=== PATIENT | male | born 1980 | race Caucasian/White ===

== ENCOUNTER 2019-03-09 13:42 | Inpatient (IN) | payer OTHER ==
[2019-03-09 14:15] VITALS: BMI 26.1
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
--- NOTE | 2019-03-09 16:48 | PN ---
Teaching Attending Note Name of Resident: Sheeba Valenzuela ATTENDING PHYSICIAN STATEMENT I saw and evaluated the patient. I reviewed the resident's note and discussed the case with the resident. I agree with the resident's findings and plan as documented. SUBJECTIVE: 39 yo with h/o HTN, back pain, for heroin and benzo use disorders. Was in detox at [facility] last week, left 1 day, AMA. Heroin uses 5 bags- IV/inhalations, h/o methadone MAT but stopped a few years ago, h/o OD last week benzo 2 mg Klonopin- prescription cocaine use inh occ use OBJECTIVE: Vital Signs - 24 hr 03/09/19 03/09/19 14:02 14:36 Temperature 96.7 F L 96.7 F L Pulse Rate 65 65 Respiratory 16 16 Rate Blood Pressure 99/70 99/70 alert and oriented tremulous ASSESSMENT AND PLAN: pt to be admitted for heroin detox with methadone
[2019-03-09] MEDS ORDERED: cloNIDine HCL 0.1 MG TABLET PO PRN (17:22)
[2019-03-09] MEDS ORDERED: MAGNESIUM HYDROX 2400MG/30ML ORAL SUSPENSION 30 ML CUP PO PRN (17:23)
[2019-03-09] MEDS ORDERED: ACETAMINOPHEN 325 MG TABLET (FP) PO PRN ×2 (17:23)
[2019-03-09] MEDS ORDERED: MENTHOL/PHENOL 1 EACH UD MM PRN (17:23)
[2019-03-09] MEDS ORDERED: BISMUTH SUBSALICYLATE 524 MG/30 ML UD PO PRN (17:23)
[2019-03-09] MEDS ORDERED: METHOCARBAMOL 500 MG TABLET PO PRN (17:23)
[2019-03-09] MEDS ORDERED: hydrOXYzine PAMOATE 25 MG CAPSULE (FP) PO PRN (17:23)
[2019-03-09] MEDS ORDERED: MAG HYDROX/AL HYDROX/SIMETH 30 ML UNIT-DOSE CUP PO PRN (17:23)
[2019-03-09] MEDS ORDERED: METHADONE HCL 10 MG TABLET (FOR DETOX USE ONLY) PO ONE (18:00)
[2019-03-09] MEDS: diazePAM 5 MG TABLET PO PRN (18:05)
[2019-03-09] MEDS: NICOTINE 14 MG/24 HOURS TOPICAL PATCH TD SCH (18:10)
[2019-03-09] MEDS: diazePAM 5 MG TABLET PO SCH (22:15)
[2019-03-09] MEDS: THIAMINE HCL 100 MG TABLET (FP) PO SCH (22:15)
[2019-03-09] MEDS: MELATONIN 5 MG TABLETS PO PRN (22:15)
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
[2019-03-10] MEDS: diazePAM 5 MG TABLET PO PRN (09:06)
[2019-03-10] MEDS ORDERED: METHADONE HCL 5 MG TABLET (FOR DETOX USE ONLY) ONE (09:40)
[2019-03-10] MEDS ORDERED: METHADONE HCL 10 MG TABLET (FOR DETOX USE ONLY) ONE (09:41)
[2019-03-10] MEDS ORDERED: METHADONE (DETOX) 20 MG, METHADONE (DETOX) 5 MG PO ONE (10:00)
[2019-03-10] MEDS: NICOTINE 14 MG/24 HOURS TOPICAL PATCH TD SCH (10:13)
[2019-03-10] MEDS: diazePAM 5 MG TABLET PO SCH ×2 (10:13→22:05)
[2019-03-10] MEDS: PRENATAL VITAMINS W/ FOLIC ACID TABLET (FP) PO SCH (10:13)
[2019-03-10] MEDS: QUEtiapine FUMARATE 25 MG TABLET (FP) PO SCH ×2 (11:00→17:49)
[2019-03-10 11:22] LABS: ALBUMIN 3.3 g/dl (3.4-5.0); BILIRUBIN,TOTAL 0.5 mg/dL (0.2-1); BLOOD UREA NITROGEN 13.2 mg/dL (7-18); CALCIUM 8.7 mg/dL (8.5-10.1); CREATININE 0.8 mg/dL (0.55-1.3); POTASSIUM 4.5 mmol/L (3.5-5.1); TOT PROT 6.6 g/dl (6.4-8.2)
[2019-03-10 11:52] LABS: HEMATOCRIT 39.2 % (35.4-49); HEMOGLOBIN 13.3 GM/dL (11.7-16.9); MEAN CELL VOLUME 88.1 fl (80-96); MEAN PLT VOLUME 8.2 fl (7.5-11.1); PLATELET COUNT 183 K/MM3 (134-434); RBC 4.45 M/mm3 (4.00-5.60); RDW 13.8 % (11.9-15.9); WHITE BLOOD COUNT 6.3 K/mm3 (4.0-10.0)
[2019-03-10] MEDS: hydrOXYzine PAMOATE 50 MG CAPSULE (FP) PO PRN (12:21)
[2019-03-10] MEDS: cloNIDine HCL 0.1 MG TABLET PO PRN (12:21)
[2019-03-10] MEDS: LIDOCAINE 5% TOPICAL PATCH TP SCH (12:22)
[2019-03-10] MEDS: GABAPENTIN 400 MG CAPSULE (FP) PO SCH ×2 (15:00→22:05)
--- NOTE | 2019-03-10 15:33 | PN ---
[facility] CIWA - CIWA Score Nausea/Vomitin-No Nausea/No Vomiting Muscle Tremors: 3 Anxiety: 2 Agitation: 2 Paroxysmal Sweats: 3 Orientation: 0-Oriented Tacttile Disturbances: 2-Mild Itch/Numbness/Burn Auditory Disturbances: 0-None Visual Disturbances: 2-Mild Sensitivity Headache: 0-None Present CIWA-Ar Total Score: 14 BHS COWS - Scale Resting Pulse: 0= [place] 80 or Below Sweatin= Chills/Flushing Restless Observation: 1= Difficult to Sit Still Pupil Size: 0= Normal to Room Light Bone or Joint Aches: 2= Severe Diffuse Aches Runny Nose/ Eye Tearin= None GI Upset > 30mins: 1= Stomach Cramp (Constipation.) Tremor Observation of Outstretched Hands: 2= Slight Tremor Visible Yawning Observation: 1= 1-2x During Session Anxiety or Irritability: 2=Irritable/Anxious Goose Flesh Skin: 3=Piloerection COWS Score: 13 S Progress Note (SOAP) Subjective: Hot / Cold Sensations, Chills, Sweating, Tremors, Body Aches, Constipation. Objective: PATIENT A & O X 3, OBSERVED AMBULATING ON UNIT UNASSISTED. IN NO ACUTE DISTRESS. 03/10/19 15:31 Vital Signs Temperature 97.0 F L 03/10/19 13:29 Pulse Rate 54 L 03/10/19 13:29 Respiratory Rate 18 03/10/19 13:29 Blood Pressure 122/75 03/10/19 13:29 O2 Sat by Pulse Oximetry (%) Laboratory Tests 03/10/19 03/10/19 03/10/19 07:00 07:00 07:00 WBC 6.3 RBC 4.45 Hgb 13.3 Hct 39.2 MCV 88.1 MCH 30.0 MCHC 34.0 RDW 13.8 Plt Count 183 MPV 8.2 Sodium 140 Potassium 4.5 Chloride 104 Carbon Dioxide 29 Anion Gap 7 L BUN 13.2 Creatinine 0.8 Est GFR (CKD-EPI)AfAm 130.42 Est GFR (CKD-EPI)NonAf 112.53 Random Glucose 86 Calcium 8.7 Total Bilirubin 0.5 AST 10 L ALT 15 Alkaline Phosphatase 78 Total Protein 6.6 Albumin 3.3 L RPR Titer Nonreactive LABS NOTED. RESULTS OF DETOX ADMISSION QFT /TB TEST PENDING. 03/10/19 15:32 Assessment: 03/10/19 15:32 WITHDRAWAL SYMPTOMS. Plan: CONTINUE DETOX.
[2019-03-10] MEDS: THIAMINE HCL 100 MG TABLET (FP) PO SCH (22:05)
[2019-03-10] MEDS: MELATONIN 5 MG TABLETS PO PRN (22:05)
[2019-03-10] MEDS: QUEtiapine FUMARATE 400 MG TABLET PO SCH (22:05)
[2019-03-10] MEDS: LIDOCAINE PATCH REMOVAL MC SCH (22:07)
[2019-03-11] MEDS: GABAPENTIN 400 MG CAPSULE (FP) PO SCH ×3 (05:10→22:09)
[2019-03-11] MEDS: diazePAM 5 MG TABLET PO SCH ×3 (05:10→17:24)
[2019-03-11] MEDS: cloNIDine HCL 0.1 MG TABLET PO PRN ×4 (05:16→22:08)
[2019-03-11] MEDS ORDERED: METHADONE HCL 10 MG TABLET (FOR DETOX USE ONLY) PO ONE (10:00)
[2019-03-11] MEDS: PRENATAL VITAMINS W/ FOLIC ACID TABLET (FP) PO SCH (10:01)
[2019-03-11] MEDS: QUEtiapine FUMARATE 25 MG TABLET (FP) PO SCH ×2 (10:01→17:23)
[2019-03-11] MEDS: CYCLOBENZAPRINE HCL 10 MG TABLET (FP) PO PRN (10:04)
[2019-03-11] MEDS: LIDOCAINE 5% TOPICAL PATCH TP SCH (10:05)
[2019-03-11] MEDS: NICOTINE 14 MG/24 HOURS TOPICAL PATCH TD SCH (10:05)
[2019-03-11] MEDS: IBUPROFEN 400 MG TABLET (FP) PO PRN (14:57)
--- NOTE | 2019-03-11 15:06 | PN ---
[facility] CIWA - CIWA Score Nausea/Vomitin-No Nausea/No Vomiting Muscle Tremors: 3 Anxiety: 2 Agitation: 0-Normal Activity Paroxysmal Sweats: 3 Orientation: 0-Oriented Tacttile Disturbances: 2-Mild Itch/Numbness/Burn Auditory Disturbances: 0-None Visual Disturbances: 2-Mild Sensitivity Headache: 0-None Present CIWA-Ar Total Score: 12 S COWS - Scale Resting Pulse: 1= [place] 81-100 Sweatin= Chills/Flushing Restless Observation: 0= Sits Still Pupil Size: 0= Normal to Room Light Bone or Joint Aches: 2= Severe Diffuse Aches Runny Nose/ Eye Tearin= None GI Upset > 30mins: 0= None Tremor Observation of Outstretched Hands: 2= Slight Tremor Visible Yawning Observation: 1= 1-2x During Session Anxiety or Irritability: 2=Irritable/Anxious Goose Flesh Skin: 3=Piloerection COWS Score: 12 S Progress Note (SOAP) Subjective: Tremors, Sweating, Hot / Cold Sensations, Body Aches. Objective: PATIENT A & O X 3, OBSERVED AMBULATING ON UNIT UNASSISTED. IN NO ACUTE DISTRESS. 03/11/19 15:03 Vital Signs Temperature 97.9 F 03/11/19 13:27 Pulse Rate 87 03/11/19 13:27 Respiratory Rate 18 03/11/19 13:27 Blood Pressure 109/71 03/11/19 13:27 O2 Sat by Pulse Oximetry (%) Laboratory Tests 03/10/19 03/10/19 03/10/19 07:00 07:00 07:00 WBC 6.3 RBC 4.45 Hgb 13.3 Hct 39.2 MCV 88.1 MCH 30.0 MCHC 34.0 RDW 13.8 Plt Count 183 MPV 8.2 Sodium 140 Potassium 4.5 Chloride 104 Carbon Dioxide 29 Anion Gap 7 L BUN 13.2 Creatinine 0.8 Est GFR (CKD-EPI)AfAm 130.42 Est GFR (CKD-EPI)NonAf 112.53 Random Glucose 86 Calcium 8.7 Total Bilirubin 0.5 AST 10 L ALT 15 Alkaline Phosphatase 78 Total Protein 6.6 Albumin 3.3 L RPR Titer Nonreactive LABS NOTED. RESULTS OF DETOX ADMISSION QFT /TB TEST PENDING. 03/11/19 15:06 Assessment: 03/11/19 15:03 WITHDRAWAL SYMPTOMS. Plan: CONTINUE DETOX.
[2019-03-11] MEDS: hydrOXYzine PAMOATE 50 MG CAPSULE (FP) PO PRN (17:23)
[2019-03-11] MEDS: LIDOCAINE PATCH REMOVAL MC SCH (22:07)
[2019-03-11] MEDS: FLUTICASONE PROP 0.05% 16 GM NASAL SPRAY NS SCH (22:07)
[2019-03-11] MEDS: THIAMINE HCL 100 MG TABLET (FP) PO SCH (22:08)
[2019-03-11] MEDS: diazePAM 5 MG TABLET PO PRN (22:08)
[2019-03-11] MEDS: QUEtiapine FUMARATE 400 MG TABLET PO SCH (22:09)
[2019-03-12] MEDS ORDERED: diazePAM 5 MG TABLET PO ONE (06:00)
[2019-03-12] MEDS: GABAPENTIN 400 MG CAPSULE (FP) PO SCH ×3 (06:36→22:20)
[2019-03-12] MEDS ORDERED: METHADONE HCL 10 MG TABLET (FOR DETOX USE ONLY) ONE (08:53)
[2019-03-12] MEDS ORDERED: METHADONE HCL 5 MG TABLET (FOR DETOX USE ONLY) ONE (08:53)
--- NOTE | 2019-03-12 08:58 | PN ---
BHS COWS - Scale Resting Pulse: 1= SD 81-100 Sweatin= Chills/Flushing Restless Observation: 1= Difficult to Sit Still Pupil Size: 0= Normal to Room Light Bone or Joint Aches: 1= Mild Discomfort Runny Nose/ Eye Tearin= None GI Upset > 30mins: 1= Stomach Cramp Tremor Observation of Outstretched Hands: 2= Slight Tremor Visible Yawning Observation: 1= 1-2x During Session Anxiety or Irritability: 1=Feels Anxious/Irritable Goose Flesh Skin: 0=Smooth Skin COWS Score: 9 BHS Progress Note (SOAP) Subjective: Patient seen in bed and feeling still some subjective withdrawal symptoms. Objective: 03/12/19 08:57 Laboratory 03/10/19 03/10/19 03/10/19 07:00 07:00 07:00 WBC 6.3 K/mm3 K/mm3 (4.0-10.0) RBC 4.45 M/mm3 M/mm3 (4.00-5.60) Hgb 13.3 GM/dL GM/dL (11.7-16.9) Hct 39.2 % % (35.4-49) MCV 88.1 fl fl (80-96) MCH 30.0 pg pg (25.7-33.7) MCHC 34.0 g/dl g/dl (32.0-35.9) RDW 13.8 % % (11.9-15.9) Plt Count 183 K/MM3 K/MM3 (134-434) MPV 8.2 fl fl (7.5-11.1) Sodium 140 mmol/L mmol/L (136-145) Potassium 4.5 mmol/L mmol/L (3.5-5.1) Chloride 104 mmol/L mmol/L (98-107) Carbon Dioxide 29 mmol/L mmol/L (21-32) Anion Gap 7 MMOL/L L MMOL/L (8-16) BUN 13.2 mg/dL mg/dL (7-18) Creatinine 0.8 mg/dL mg/dL (0.55-1.3) Est GFR (CKD-EPI)AfAm 130.42 Est GFR (CKD-EPI)NonAf 112.53 Random Glucose 86 mg/dL mg/dL (74-106) Calcium 8.7 mg/dL mg/dL (8.5-10.1) Total Bilirubin 0.5 mg/dL mg/dL (0.2-1) AST 10 U/L L U/L (15-37) ALT 15 U/L U/L (13-61) Alkaline Phosphatase 78 U/L U/L (45-117) Total Protein 6.6 g/dl g/dl (6.4-8.2) Albumin 3.3 g/dl L g/dl (3.4-5.0) RPR Titer Nonreactive (NONREACTIVE) 03/12/19 08:58 Bp: 107/55 P:100/min R: 18/min T: 96.6 F Assessment: 03/12/19 09:00 Assessment: Patient is still in withdrawals Plan: Plan: Opioid Dependence with uncomplicated withdrawals Continue detox protocol. He wishes to follow up with rehab to discuss this with counselor. Dr. Fitzpatrick
[2019-03-12] MEDS: NICOTINE 14 MG/24 HOURS TOPICAL PATCH TD SCH (09:35)
[2019-03-12] MEDS: LIDOCAINE 5% TOPICAL PATCH TP SCH (09:35)
[2019-03-12] MEDS: PRENATAL VITAMINS W/ FOLIC ACID TABLET (FP) PO SCH (09:35)
[2019-03-12] MEDS: FLUTICASONE PROP 0.05% 16 GM NASAL SPRAY NS SCH (09:35)
[2019-03-12] MEDS: QUEtiapine FUMARATE 25 MG TABLET (FP) PO SCH ×2 (09:35→16:29)
[2019-03-12] MEDS ORDERED: METHADONE (DETOX) 10 MG, METHADONE (DETOX) 5 MG PO ONE (10:00)
[2019-03-12] MEDS: cloNIDine HCL 0.1 MG TABLET PO PRN ×2 (12:35→22:22)
[2019-03-12] MEDS: diazePAM 5 MG TABLET PO PRN (14:36)
[2019-03-12] MEDS: IBUPROFEN 400 MG TABLET (FP) PO PRN (16:29)
[2019-03-12] MEDS: THIAMINE HCL 100 MG TABLET (FP) PO SCH (22:20)
[2019-03-12] MEDS: QUEtiapine FUMARATE 400 MG TABLET PO SCH (22:20)
[2019-03-12] MEDS: LIDOCAINE PATCH REMOVAL MC SCH (23:17)
[2019-03-13] MEDS: GABAPENTIN 400 MG CAPSULE (FP) PO SCH ×3 (05:33→22:20)
[2019-03-13] MEDS: cloNIDine HCL 0.1 MG TABLET PO PRN (05:36)
[2019-03-13] MEDS ORDERED: METHADONE HCL 10 MG TABLET (FOR DETOX USE ONLY) PO ONE (10:00)
[2019-03-13] MEDS: PRENATAL VITAMINS W/ FOLIC ACID TABLET (FP) PO SCH (10:19)
[2019-03-13] MEDS: QUEtiapine FUMARATE 25 MG TABLET (FP) PO SCH ×2 (10:19→17:28)
[2019-03-13] MEDS: FLUTICASONE PROP 0.05% 16 GM NASAL SPRAY NS SCH (10:20)
[2019-03-13] MEDS: LIDOCAINE 5% TOPICAL PATCH TP SCH (10:20)
[2019-03-13] MEDS: NICOTINE 14 MG/24 HOURS TOPICAL PATCH TD SCH (10:21)
--- NOTE | 2019-03-13 11:35 | PN ---
BHS COWS - Scale Resting Pulse: 1= [place] 81-100 Sweatin= Chills/Flushing Restless Observation: 1= Difficult to Sit Still Pupil Size: 0= Normal to Room Light Bone or Joint Aches: 1= Mild Discomfort Runny Nose/ Eye Tearin= Nasal Congestion GI Upset > 30mins: 0= None Tremor Observation of Outstretched Hands: 0= None Yawning Observation: 1= 1-2x During Session Anxiety or Irritability: 1=Feels Anxious/Irritable Goose Flesh Skin: 0=Smooth Skin COWS Score: 7 BHS Progress Note (SOAP) Subjective: sweats anxiety Objective: 03/13/19 11:33 Vital Signs Temperature 95.7 F L 03/13/19 09:19 Pulse Rate 84 03/13/19 09:19 Respiratory Rate 17 03/13/19 09:19 Blood Pressure 111/64 03/13/19 09:19 O2 Sat by Pulse Oximetry (%) Laboratory Tests 03/10/19 03/10/19 03/10/19 07:00 07:00 07:00 WBC 6.3 RBC 4.45 Hgb 13.3 Hct 39.2 MCV 88.1 MCH 30.0 MCHC 34.0 RDW 13.8 Plt Count 183 MPV 8.2 Sodium 140 Potassium 4.5 Chloride 104 Carbon Dioxide 29 Anion Gap 7 L BUN 13.2 Creatinine 0.8 Est GFR (CKD-EPI)AfAm 130.42 Est GFR (CKD-EPI)NonAf 112.53 Random Glucose 86 Calcium 8.7 Total Bilirubin 0.5 AST 10 L ALT 15 Alkaline Phosphatase 78 Total Protein 6.6 Albumin 3.3 L RPR Titer TB (QFT) Incubation TB Test (QFT) Nil 0.23 TB Test (QFT) Mitogen >10.00 TB Test (QFT) Antigen 1.40 TB Test (QFT) Positive H TB Positive Criteria 03/10/19 07:00 WBC RBC Hgb Hct MCV MCH MCHC RDW Plt Count MPV Sodium Potassium Chloride Carbon Dioxide Anion Gap BUN Creatinine Est GFR (CKD-EPI)AfAm Est GFR (CKD-EPI)NonAf Random Glucose Calcium Total Bilirubin AST ALT Alkaline Phosphatase Total Protein Albumin RPR Titer Nonreactive TB (QFT) Incubation TB Test (QFT) Nil TB Test (QFT) Mitogen TB Test (QFT) Antigen TB Test (QFT) TB Positive Criteria lab result show a +TB QFT chest x-ray ordered but cryptographic technician arrives on friday, fri, friday only therefore pt will remain until friday and he can then go for chest x-ray for confirmation of the lab result [id number] ambulating no acute distress Assessment: 03/13/19 11:34 mild withdrawal sx Plan: continue detox increase fluids chest ray ordered for Friday therefore pt will remain until Friday and then be discharged after the chest ray and results are in.
[2019-03-13] MEDS: hydrOXYzine PAMOATE 50 MG CAPSULE (FP) PO PRN ×2 (13:24→17:28)
[2019-03-13] MEDS: CYCLOBENZAPRINE HCL 10 MG TABLET (FP) PO PRN ×2 (13:28→22:20)
[2019-03-13] MEDS ORDERED: diazePAM 5 MG TABLET PO ONE (21:18)
[2019-03-13] MEDS: LIDOCAINE PATCH REMOVAL MC SCH (22:19)
[2019-03-13] MEDS: QUEtiapine FUMARATE 400 MG TABLET PO SCH (22:20)
[2019-03-13] MEDS: THIAMINE HCL 100 MG TABLET (FP) PO SCH (22:20)
[2019-03-14] MEDS: GABAPENTIN 400 MG CAPSULE (FP) PO SCH (05:40)
[2019-03-14] MEDS ORDERED: METHADONE HCL 5 MG TABLET (FOR DETOX USE ONLY) PO ONE (06:00)
[2019-03-14 06:26] VITALS: BP 131/82; PULSE 86; TEMP 97.2
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
== END 2019-03-14 10:15 | disposition home or self-care (01) | DRG 773 ==
LOC: YASAS 13:42 → Y6N 17:28
PROVIDERS: ADMIT Surgery; ATTEND Surgery
PROC: HZ2ZZZZ Detoxification Services for Substance Abuse Treatment (ICD-10-PCS; principal; 2019-03-09)
DX: F11.23 Opioid dependence with withdrawal (principal); F13.230 Sedative, hypnotic or anxiolytic dependence with withdrawal, uncomplicated; F17.210 Nicotine dependence, cigarettes, uncomplicated; F41.9 Anxiety disorder, unspecified; F19.24 Other psychoactive substance dependence with psychoactive substance-induced mood disorder; F19.282 Other psychoactive substance dependence with psychoactive substance-induced sleep disorder; I10 Essential (primary) hypertension; M54.9 Dorsalgia, unspecified; G89.29 Other chronic pain; G25.0 Essential tremor; Z91.013 Allergy to seafood
CPT/HCPCS: 36415; 80053; 85027; 86480; 86593; J0735

== ENCOUNTER 2019-08-12 11:24 | Inpatient (IN) | payer OTHER ==
[2019-08-12 13:12] VITALS: BMI 27.2
--- NOTE | 2019-08-12 19:10 | HP ---
COWS - Scale Resting Pulse: 1= [place] 81-100 Sweatin= Beads of Sweat on Face Restless Observation: 3= Extraneous Movement Pupil Size: 0= Normal to Room Light Bone or Joint Aches: 4=Acute Joint/Muscle Pain Runny Nose/ Eye Tearin= None GI Upset > 30mins: 1= Stomach Cramp Tremor Observation: 2= Slight Tremor Visible Yawning Observation: 2= >3x During Session Anxiety or Irritability: 2=Irritable/Anxious Goose Flesh Skin: 0=Smooth Skin COWS Score: 18 CIWA Score - Admission Criteria OASAS Guidelines: Admission for Medically Managed Detox: Requires at least one of the followin. CIWA greater than 12 2. Seizures within the past 24 hours 3. Delirium tremens within the past 24 hours 4. Hallucinations within the past 24 hours 5. Acute intervention needed for co occurring medical disorder 6. Acute intervention needed for co occurring psychiatric disorder 7. Severe withdrawal that cannot be handled at a lower level of care (continued vomiting, continued diarrhea, abnormal vital signs) requiring intravenous medication and/or fluids 8. Admitting History and Physical - Admission Chief Complaint: "i'm here for heroin detox" History of Present Illness: A 39year old male with history of HTN, seizure, anxiety, depression, and heroin use disorder who presents here today for heroin detox. Last used heroin this morning via iv/inhalation. Pt states, he occasionally uses via IV into b/ l arms. No hx endocarditis, abscesses. Pt reports that he used to be in a methadone program but stopped because he didn't like the taste of methadone.Denies any depression or suicidal ideation at the moment. History Source: Patient Limitations to Obtaining History: No Limitations - Past Medical History Cardiovascular: Yes: HTN - Smoking History Smoking history: Current every day smoker Have you smoked in the past 12 months: Yes Aproximately how many cigarettes per day: 20 - Alcohol/Substance Use Hx Alcohol Use: No History of Substance Use: reports: Heroin - Social History Usual Living Arrangement: Yes: With Parent Do you think of yourself as: Straight/Heterosexual ADL: Independent History of Recent Travel: No Admission ROS S - HPI Allergies/Adverse Reactions: Allergies Allergy/AdvReac Type Severity Reaction Status Date / Time shellfish derived Allergy Intermediate Itching Verified 08/12/19 12:55 No Known Drug Allergies Allergy Verified 08/12/19 12:55 Exam Limitations: No Limitations - Ebola screening Have you traveled outside of the country in the last 21 days: No Have you had contact with anyone from an Ebola affected area: No Have you been sick,other than usual withdrawal symptoms: No Do you have a fever: No - Review of Systems Constitutional: Chills, Loss of Appetite, Night Sweats EENT: reports: Blurred Vision Respiratory: reports: No Symptoms reported Cardiac: reports: No Symptoms Reported GI: reports: Poor Appetite, Abdominal cramping : reports: No Symptoms Reported Musculoskeletal: reports: Back Pain, Joint Pain, Muscle Pain Integumentary: reports: Other (track locke on b/l vashti) Neuro: reports: Headache, Tremors Endocrine: reports: No Symptoms Reported Hematology: reports: No Symptoms Reported Psychiatric: reports: Judgement Intact, Mood/Affect Appropiate, other (h/o of depression.) Other Systems: Reviewed and Negative Patient History - Patient Medical History Hx Anemia: No Hx Asthma: No Hx Chronic Obstructive Pulmonary Disease (COPD): No Hx Cancer: No Hx Cardiac Disorders: No Hx Congestive Heart Failure: No Hx Hypertension: Yes Hx Hypercholesterolemia: No Hx Pacemaker: No HX Cerebrovascular Accident: No Hx Seizures: Yes (last 2 months ago) Hx Dementia: No Hx Diabetes: No Hx Gastrointestinal Disorders: No Hx Liver Disease: No Hx Genitourinary Disorders: No Hx Sexually Transmitted Disorders: No Hx Renal Disease (ESRD): No Hx Thyroid Disease: No Hx Human Immunodeficiency Virus (HIV): No (negative jun, 2019.) Hx Hepatitis C: No Hx Depression: Yes Hx Suicide Attempt: No Hx Bipolar Disorder: No Hx Schizophrenia: No - Patient Surgical History Past Surgical History: No Hx Neurologic Surgery: No Hx Cataract Extraction: No Hx Cardiac Surgery: No Hx Lung Surgery: No Hx Breast Surgery: No Hx Breast Biopsy: No Hx Abdominal Surgery: No Hx Appendectomy: No Hx Cholecystectomy: No Hx Genitourinary Surgery: No Hx Orthopedic Surgery: No - PPD History Previous Implant?: Yes (pt states he had one last month) Documented Results: Positive w/o proof Implanted On Prior [facility] Admission?: No PPD to be Administered?: No - Smoking Cessation Smoking history: Current every day smoker Have you smoked in the past 12 months: Yes Aproximately how many cigarettes per day: 20 Hx Chewing Tobacco Use: No Initiated information on smoking cessation: Yes 'Breaking Loose' booklet given: 08/12/19 - Substance & Tx. History Hx Alcohol Use: No Hx Substance Use: Yes Substance Use Type: Heroin Hx Substance Use Treatment: Yes (Pt states, he was on methadone tx for 15yrs and stopped last year 2018.) - Substances abused Heroin Substance route: Injection Frequency: Daily Amount used: 1 1/2 bundles Age of first use: 23 Date of last use: 08/12/19 (Pt states he injects/sniffs heroin) Benzodiazepine (Klonopin) Substance route: Oral Frequency: Daily Amount used: 2mg Age of first use: 21 Date of last use: 03/05/19 Admission Physical Exam [facility] - Vital Signs Vital Signs: Vital Signs - 24 hr 08/12/19 12:51 Temperature 97.2 F L Pulse Rate 91 H Respiratory 18 Rate Blood Pressure 120/75 - Physical General Appearance: Yes: No Apparent Distress, Tremorous, Irritable, Sweating, Anxious HEENTM: Yes: EOMI, Hearing grossly Normal, Normocephalic, Normal Voice, MICHAEL, Tm 's normal Respiratory: Yes: Chest Non-Tender, Lungs Clear, Normal Breath Sounds, No Respiratory Distress, No Accessory Muscle Use Neck: Yes: No masses,lesions,Nodules, Supple, Trachea in good position Breast: Yes: Within Normal Limits Cardiology: Yes: Regular Rhythm, Regular Rate, S1, S2 Abdominal: Yes: Normal Bowel Sounds, Non Tender, Soft Genitourinary: Yes: Within Normal Limits Back: Yes: Normal Inspection Musculoskeletal: Yes: full range of Motion Extremities: Yes: Normal Capillary Refill, Normal Inspection, Non-Tender, Tremors Neurological: Yes: Alert, Normal Mood/Affect, Normal Response Integumentary: Yes: Track Locke (track locke to /l arms.) - Diagnostic (1) History of positive PPD Current Visit: No Status: Acute (2) Opiate withdrawal Current Visit: No Status: Acute (3) Opioid dependence, uncomplicated Current Visit: No Status: Acute (4) Anxiety disorder Current Visit: No Status: Chronic (5) Back pain Current Visit: No Status: Chronic (6) Depression Current Visit: No Status: Chronic (7) Hypertension Current Visit: No Status: Chronic (8) Nicotine use disorder Current Visit: No Status: Chronic Cleared for Admission [facility] - Detox or Rehab [facility] Level of Care: Medically Managed Detox Regimen/Protocol: Methadone Claeared for Rehab Admission: No Breathalyzer - Breathalyzer Breathalyzer: 0 Urine Drug Screen - Test Device Lot number: [id number] Expiration date: 03/02/21 - Control Is test valid?: Yes - Results Drug screen NEGATIVE: No Urine drug screen results: FEN-Fentanyl, MOP-Opiates Inpatient Rehab Admission - Rehab Decision to Admit Inpatient rehab admission?: No
[2019-08-12] MEDS ORDERED: MAGNESIUM HYDROX 2400MG/30ML ORAL SUSPENSION 30 ML CUP PO PRN (19:29)
[2019-08-12] MEDS ORDERED: hydrOXYzine PAMOATE 25 MG CAPSULE (FP) PO PRN (19:29)
[2019-08-12] MEDS ORDERED: MENTHOL/PHENOL 1 EACH UD MM PRN (19:29)
[2019-08-12] MEDS ORDERED: IBUPROFEN 400 MG TABLET (FP) PO PRN (19:29)
[2019-08-12] MEDS ORDERED: BISMUTH SUBSALICYLATE 524 MG/30 ML UD PO PRN (19:29)
[2019-08-12] MEDS ORDERED: MAG HYDROX/AL HYDROX/SIMETH 30 ML UNIT-DOSE CUP PO PRN (19:29)
[2019-08-12] MEDS ORDERED: ACETAMINOPHEN 325 MG TABLET (FP) PO PRN ×2 (19:29)
[2019-08-12] MEDS ORDERED: MAGNESIUM CITRATE 300 ML BOTTLE PO PRN (19:29)
[2019-08-12] MEDS ORDERED: cloNIDine HCL 0.1 MG TABLET PO PRN ×2 (19:33→19:46)
[2019-08-12] MEDS ORDERED: METHADONE HCL 10 MG TABLET (FOR DETOX USE ONLY) PO ONE (19:45)
[2019-08-12] MEDS: THIAMINE HCL 100 MG TABLET (FP) PO SCH (22:28)
[2019-08-12] MEDS: levETIRAcetam 500 MG TABLET (FP) PO SCH (22:28)
[2019-08-12] MEDS: MELATONIN 5 MG TABLETS PO PRN (22:29)
[2019-08-12] MEDS: METHOCARBAMOL 500 MG TABLET PO PRN (22:29)
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
[2019-08-13] MEDS ORDERED: METHADONE HCL 5 MG TABLET (FOR DETOX USE ONLY) ONE (08:46)
[2019-08-13] MEDS ORDERED: METHADONE HCL 10 MG TABLET (FOR DETOX USE ONLY) ONE (08:46)
[2019-08-13] MEDS ORDERED: METHADONE (DETOX) 20 MG, METHADONE (DETOX) 5 MG PO ONE (10:00)
[2019-08-13] MEDS: PRENATAL VITAMINS W/ FOLIC ACID TABLET (FP) PO SCH (10:08)
[2019-08-13] MEDS: levETIRAcetam 500 MG TABLET (FP) PO SCH ×2 (10:08→21:52)
[2019-08-13] MEDS: ESCITALOPRAM OXALATE 20 MG TABLET (FP) PO SCH (10:09)
[2019-08-13] MEDS ORDERED: ESCITALOPRAM OXALATE 10 MG TABLET (FP) ONE (10:09)
[2019-08-13] MEDS: QUEtiapine FUMARATE 25 MG TABLET (FP) PO SCH (10:09)
[2019-08-13 10:48] LABS: HEMATOCRIT 43.2 % (35.4-49); HEMOGLOBIN 14.3 GM/dL (11.7-16.9); MCH 29.3 pg (25.7-33.7); MCHC 33.1 g/dl (32.0-35.9); MEAN CELL VOLUME 88.5 fl (80-96); MEAN PLT VOLUME 8.6 fl (7.5-11.1); PLATELET COUNT 232 K/MM3 (134-434); RBC 4.88 M/mm3 (4.00-5.60); RDW 13.1 % (11.9-15.9); WHITE BLOOD COUNT 7.7 K/mm3 (4.0-10.0)
[2019-08-13 10:58] LABS: ALBUMIN 3.3 g/dl (3.4-5.0); BILIRUBIN,TOTAL 0.6 mg/dL (0.2-1); BLOOD UREA NITROGEN 13.4 mg/dL (7-18); CALCIUM 8.8 mg/dL (8.5-10.1); CREATININE 0.6 mg/dL (0.55-1.3); POTASSIUM 4.2 mmol/L (3.5-5.1); TOT PROT 6.8 g/dl (6.4-8.2)
--- NOTE | 2019-08-13 11:04 | PN ---
BHS COWS - Scale Resting Pulse: 1= [place] 81-100 Sweatin= Chills/Flushing Restless Observation: 1= Difficult to Sit Still Pupil Size: 0= Normal to Room Light Bone or Joint Aches: 2= Severe Diffuse Aches GI Upset > 30mins: 1= Stomach Cramp Tremor Observation of Outstretched Hands: 2= Slight Tremor Visible Yawning Observation: 1= 1-2x During Session Anxiety or Irritability: 2=Irritable/Anxious Goose Flesh Skin: 0=Smooth Skin BHS Progress Note (SOAP) Subjective: pt admitted yesterday for for heroin detox. Says still feeling sick. O: Vital Signs - 24 hr 08/12/19 08/12/19 08/13/19 12:51 22:40 00:27 Temperature 97.2 F L 97.4 F L Pulse Rate 91 H 90 Respiratory 18 18 18 Rate Blood Pressure 120/75 110/72 08/13/19 08/13/19 08/13/19 03:30 05:52 09:13 Temperature 97 F L 97.6 F Pulse Rate 70 67 Respiratory 16 18 18 Rate Blood Pressure 105/60 119/80 Laboratory Tests 08/13/19 08/13/19 07:45 07:45 WBC 7.7 RBC 4.88 Hgb 14.3 Hct 43.2 MCV 88.5 MCH 29.3 MCHC 33.1 RDW 13.1 Plt Count 232 D MPV 8.6 Sodium 139 Potassium 4.2 Chloride 104 Carbon Dioxide 30 Anion Gap 5 L BUN 13.4 Creatinine 0.6 Est GFR (CKD-EPI)AfAm 145.76 Est GFR (CKD-EPI)NonAf 125.77 Random Glucose 84 Calcium 8.8 Total Bilirubin 0.6 AST 19 ALT 30 Alkaline Phosphatase 73 Total Protein 6.8 Albumin 3.3 L a/p: continue opioid detox: d/w pt prn meds in addition to detox with methadone and long term care administrator MAT- pt will consider this
[2019-08-13] MEDS ORDERED: clonazePAM 0.5 MG TABLET PO PRN (11:07)
--- NOTE | 2019-08-13 11:39 | EKG ---
Test Reason : Blood Pressure : / mmHG Vent. Rate : 089 BPM Atrial Rate : 089 BPM P-R Int : 140 ms QRS Dur : 090 ms QT Int : 372 ms P-R-T Axes : 033 026 043 degrees QTc Int : 452 ms NORMAL SINUS RHYTHM NORMAL ECG NO PREVIOUS ECGS AVAILABLE Confirmed by LYLE VALDES MD ([id number]) on 08/13/2019 11:39:22 AM Referred By: CORETTA RODRIGUEZ Confirmed By:LYLE VALDES MD
[2019-08-13] MEDS: hydrOXYzine PAMOATE 50 MG CAPSULE (FP) PO PRN ×3 (13:05→21:53)
[2019-08-13] MEDS: GABAPENTIN 400 MG CAPSULE (FP) PO SCH ×2 (14:36→21:51)
[2019-08-13] MEDS: clonazePAM 0.5 MG TABLET PO PRN (17:29)
[2019-08-13] MEDS: METHOCARBAMOL 500 MG TABLET PO PRN (17:29)
[2019-08-13] MEDS: cloNIDine HCL 0.1 MG TABLET PO PRN (21:52)
[2019-08-13] MEDS: QUEtiapine FUMARATE 400 MG TABLET PO SCH (21:52)
[2019-08-13] MEDS: THIAMINE HCL 100 MG TABLET (FP) PO SCH (21:52)
[2019-08-14] MEDS: GABAPENTIN 400 MG CAPSULE (FP) PO SCH ×3 (05:48→22:15)
[2019-08-14] MEDS: clonazePAM 0.5 MG TABLET PO PRN ×3 (05:50→20:08)
[2019-08-14] MEDS ORDERED: ESCITALOPRAM OXALATE 10 MG TABLET (FP) ONE (09:00)
[2019-08-14] MEDS ORDERED: METHADONE HCL 10 MG TABLET (FOR DETOX USE ONLY) PO ONE (10:00)
[2019-08-14] MEDS: PRENATAL VITAMINS W/ FOLIC ACID TABLET (FP) PO SCH (10:19)
[2019-08-14] MEDS: ESCITALOPRAM OXALATE 20 MG TABLET (FP) PO SCH (10:19)
[2019-08-14] MEDS: levETIRAcetam 500 MG TABLET (FP) PO SCH ×2 (10:19→22:15)
[2019-08-14] MEDS: QUEtiapine FUMARATE 25 MG TABLET (FP) PO SCH (10:19)
[2019-08-14] MEDS: METHOCARBAMOL 500 MG TABLET PO PRN ×2 (10:22→17:03)
--- NOTE | 2019-08-14 10:26 | PN ---
BHS COWS - Scale Resting Pulse: 0= [place] 80 or Below Sweatin= Beads of Sweat on Face Restless Observation: 1= Difficult to Sit Still Pupil Size: 0= Normal to Room Light Bone or Joint Aches: 2= Severe Diffuse Aches Runny Nose/ Eye Tearin= None GI Upset > 30mins: 0= None Tremor Observation of Outstretched Hands: 0= None Yawning Observation: 1= 1-2x During Session Anxiety or Irritability: 2=Irritable/Anxious Goose Flesh Skin: 0=Smooth Skin COWS Score: 9 S Progress Note (SOAP) Subjective: c/o sweats, muscle aches, headache, and anxiety. Objective: 08/14/19 10:25 Vital Signs 08/14/19 08/14/19 08/14/19 03:30 06:40 09:32 Temperature 97.0 F L 98.2 F Pulse Rate 72 80 Respiratory 18 18 18 Rate Blood Pressure 101/59 L 108/72 Laboratory Last Values WBC 7.7 K/mm3 (4.0-10.0) 08/13/19 07:45 RBC 4.88 M/mm3 (4.00-5.60) 08/13/19 07:45 Hgb 14.3 GM/dL (11.7-16.9) 08/13/19 07:45 Hct 43.2 % (35.4-49) 08/13/19 07:45 MCV 88.5 fl (80-96) 08/13/19 07:45 MCH 29.3 pg (25.7-33.7) 08/13/19 07:45 MCHC 33.1 g/dl (32.0-35.9) 08/13/19 07:45 RDW 13.1 % (11.9-15.9) 08/13/19 07:45 Plt Count 232 K/MM3 (134-434) D 08/13/19 07:45 MPV 8.6 fl (7.5-11.1) 08/13/19 07:45 Sodium 139 mmol/L (136-145) 08/13/19 07:45 Potassium 4.2 mmol/L (3.5-5.1) 08/13/19 07:45 Chloride 104 mmol/L (98-107) 08/13/19 07:45 Carbon Dioxide 30 mmol/L (21-32) 08/13/19 07:45 Anion Gap 5 MMOL/L (8-16) L 08/13/19 07:45 BUN 13.4 mg/dL (7-18) 08/13/19 07:45 Creatinine 0.6 mg/dL (0.55-1.3) 08/13/19 07:45 Est GFR (CKD-EPI)AfAm 145.76 08/13/19 07:45 Est GFR (CKD-EPI)NonAf 125.77 08/13/19 07:45 Random Glucose 84 mg/dL (74-106) 08/13/19 07:45 Calcium 8.8 mg/dL (8.5-10.1) 08/13/19 07:45 Total Bilirubin 0.6 mg/dL (0.2-1) 08/13/19 07:45 AST 19 U/L (15-37) 08/13/19 07:45 ALT 30 U/L (13-61) 08/13/19 07:45 Alkaline Phosphatase 73 U/L (45-117) 08/13/19 07:45 Total Protein 6.8 g/dl (6.4-8.2) 08/13/19 07:45 Albumin 3.3 g/dl (3.4-5.0) L 08/13/19 07:45 RPR Titer Nonreactive (NONREACTIVE) 08/13/19 07:45 Labs noted. Assessment: 08/14/19 10:26 AOX3, in no acute respiratory distress. Full ROM, ambulating in the unit. Withdrawal symptoms. Plan: continue detox.
[2019-08-14] MEDS ORDERED: NICOTINE POLACRILEX 2 MG GUM BUC PRN (14:14)
[2019-08-14] MEDS: NICOTINE 21 MG/24 HOURS TOPICAL PATCH TD SCH (15:09)
[2019-08-14] MEDS: hydrOXYzine PAMOATE 50 MG CAPSULE (FP) PO PRN (17:03)
[2019-08-14] MEDS: cloNIDine HCL 0.1 MG TABLET PO PRN (20:08)
[2019-08-14] MEDS: QUEtiapine FUMARATE 400 MG TABLET PO SCH (22:15)
[2019-08-14] MEDS: THIAMINE HCL 100 MG TABLET (FP) PO SCH (22:16)
[2019-08-15] MEDS: GABAPENTIN 400 MG CAPSULE (FP) PO SCH ×3 (05:33→22:26)
[2019-08-15] MEDS: clonazePAM 0.5 MG TABLET PO PRN ×2 (05:35→17:31)
[2019-08-15] MEDS ORDERED: METHADONE HCL 10 MG TABLET (FOR DETOX USE ONLY) ONE (08:44)
[2019-08-15] MEDS ORDERED: METHADONE HCL 5 MG TABLET (FOR DETOX USE ONLY) ONE (08:44)
[2019-08-15] MEDS ORDERED: ESCITALOPRAM OXALATE 10 MG TABLET (FP) ONE (08:45)
[2019-08-15] MEDS ORDERED: METHADONE (DETOX) 10 MG, METHADONE (DETOX) 5 MG PO ONE (10:00)
[2019-08-15] MEDS: QUEtiapine FUMARATE 25 MG TABLET (FP) PO SCH (10:18)
[2019-08-15] MEDS: levETIRAcetam 500 MG TABLET (FP) PO SCH ×2 (10:18→22:26)
[2019-08-15] MEDS: PRENATAL VITAMINS W/ FOLIC ACID TABLET (FP) PO SCH (10:18)
[2019-08-15] MEDS: ESCITALOPRAM OXALATE 20 MG TABLET (FP) PO SCH (10:19)
[2019-08-15] MEDS: NICOTINE 21 MG/24 HOURS TOPICAL PATCH TD SCH (10:20)
--- NOTE | 2019-08-15 10:33 | PN ---
BHS COWS - Scale Resting Pulse: 1= [place] 81-100 Sweatin= Chills/Flushing Restless Observation: 0= Sits Still Pupil Size: 1= Pupils >than Normal Bone or Joint Aches: 1= Mild Discomfort Runny Nose/ Eye Tearin= None GI Upset > 30mins: 1= Stomach Cramp Tremor Observation of Outstretched Hands: 1= Tremor [place], Not Seen Yawning Observation: 0= None Anxiety or Irritability: 1=Feels Anxious/Irritable Goose Flesh Skin: 0=Smooth Skin COWS Score: 7 BHS Progress Note (SOAP) Subjective: 39 years old male admitted on 08/12/19 for opiate withdrawal sx management treating with methadone detox regimen c/o chronic back pain lidocaine patch daily robaxine x 1 now Objective: 08/15/19 10:41 Vital Signs Temperature 95.9 F L 08/15/19 09:25 Pulse Rate 99 H 08/15/19 09:25 Respiratory Rate 20 08/15/19 09:25 Blood Pressure 116/71 08/15/19 09:25 O2 Sat by Pulse Oximetry (%) Laboratory Last Values WBC 7.7 K/mm3 (4.0-10.0) 08/13/19 07:45 RBC 4.88 M/mm3 (4.00-5.60) 08/13/19 07:45 Hgb 14.3 GM/dL (11.7-16.9) 08/13/19 07:45 Hct 43.2 % (35.4-49) 08/13/19 07:45 MCV 88.5 fl (80-96) 08/13/19 07:45 MCH 29.3 pg (25.7-33.7) 08/13/19 07:45 MCHC 33.1 g/dl (32.0-35.9) 08/13/19 07:45 RDW 13.1 % (11.9-15.9) 08/13/19 07:45 Plt Count 232 K/MM3 (134-434) D 08/13/19 07:45 MPV 8.6 fl (7.5-11.1) 08/13/19 07:45 Sodium 139 mmol/L (136-145) 08/13/19 07:45 Potassium 4.2 mmol/L (3.5-5.1) 08/13/19 07:45 Chloride 104 mmol/L (98-107) 08/13/19 07:45 Carbon Dioxide 30 mmol/L (21-32) 08/13/19 07:45 Anion Gap 5 MMOL/L (8-16) L 08/13/19 07:45 BUN 13.4 mg/dL (7-18) 08/13/19 07:45 Creatinine 0.6 mg/dL (0.55-1.3) 08/13/19 07:45 Est GFR (CKD-EPI)AfAm 145.76 08/13/19 07:45 Est GFR (CKD-EPI)NonAf 125.77 08/13/19 07:45 Random Glucose 84 mg/dL (74-106) 08/13/19 07:45 Calcium 8.8 mg/dL (8.5-10.1) 08/13/19 07:45 Total Bilirubin 0.6 mg/dL (0.2-1) 08/13/19 07:45 AST 19 U/L (15-37) 08/13/19 07:45 ALT 30 U/L (13-61) 08/13/19 07:45 Alkaline Phosphatase 73 U/L (45-117) 08/13/19 07:45 Total Protein 6.8 g/dl (6.4-8.2) 08/13/19 07:45 Albumin 3.3 g/dl (3.4-5.0) L 08/13/19 07:45 RPR Titer Nonreactive (NONREACTIVE) 08/13/19 07:45 lab noted Assessment: 08/15/19 10:41 opiate withdrawal Plan: methadone regimen picking up narcan upon discharge
[2019-08-15] MEDS ORDERED: METHOCARBAMOL 500 MG TABLET PO ONE (10:45)
[2019-08-15] MEDS: LIDOCAINE 5% TOPICAL PATCH TP SCH (12:05)
[2019-08-15] MEDS: cloNIDine HCL 0.1 MG TABLET PO PRN ×2 (17:31→22:27)
[2019-08-15] MEDS: hydrOXYzine PAMOATE 50 MG CAPSULE (FP) PO PRN ×2 (17:31→22:28)
[2019-08-15] MEDS: METHOCARBAMOL 500 MG TABLET PO PRN (17:31)
[2019-08-15] MEDS: QUEtiapine FUMARATE 400 MG TABLET PO SCH (22:26)
[2019-08-15] MEDS: LIDOCAINE PATCH REMOVAL MC SCH (22:26)
[2019-08-15] MEDS: THIAMINE HCL 100 MG TABLET (FP) PO SCH (22:26)
[2019-08-15] MEDS: MELATONIN 5 MG TABLETS PO PRN (22:27)
[2019-08-16] MEDS: GABAPENTIN 400 MG CAPSULE (FP) PO SCH ×3 (05:14→21:34)
[2019-08-16] MEDS: clonazePAM 0.5 MG TABLET PO PRN (05:16)
--- NOTE | 2019-08-16 09:55 | PN ---
BHS COWS - Scale Resting Pulse: 2= [place] 101-120 Sweatin= No chills or Flushing Restless Observation: 0= Sits Still Pupil Size: 0= Normal to Room Light Bone or Joint Aches: 1= Mild Discomfort Runny Nose/ Eye Tearin= None GI Upset > 30mins: 0= None Tremor Observation of Outstretched Hands: 0= None Yawning Observation: 0= None Anxiety or Irritability: 1=Feels Anxious/Irritable Goose Flesh Skin: 0=Smooth Skin COWS Score: 4 BHS Progress Note (SOAP) Subjective: 39 years old male admitted on 08/12/19 for opiate withdrawal sx management treating with methadone detox regimen requests suboxone prescription upon discharge health teaching on adverse reactions mixing methadone with suboxone encourage pick out hand narcan from pharmacy Objective: 08/16/19 09:54 Vital Signs Temperature 96.0 F L 08/16/19 09:16 Pulse Rate 102 H 08/16/19 09:16 Respiratory Rate 18 08/16/19 09:16 Blood Pressure 100/69 08/16/19 09:16 O2 Sat by Pulse Oximetry (%) Laboratory Last Values WBC 7.7 K/mm3 (4.0-10.0) 08/13/19 07:45 RBC 4.88 M/mm3 (4.00-5.60) 08/13/19 07:45 Hgb 14.3 GM/dL (11.7-16.9) 08/13/19 07:45 Hct 43.2 % (35.4-49) 08/13/19 07:45 MCV 88.5 fl (80-96) 08/13/19 07:45 MCH 29.3 pg (25.7-33.7) 08/13/19 07:45 MCHC 33.1 g/dl (32.0-35.9) 08/13/19 07:45 RDW 13.1 % (11.9-15.9) 08/13/19 07:45 Plt Count 232 K/MM3 (134-434) D 08/13/19 07:45 MPV 8.6 fl (7.5-11.1) 08/13/19 07:45 Sodium 139 mmol/L (136-145) 08/13/19 07:45 Potassium 4.2 mmol/L (3.5-5.1) 08/13/19 07:45 Chloride 104 mmol/L (98-107) 08/13/19 07:45 Carbon Dioxide 30 mmol/L (21-32) 08/13/19 07:45 Anion Gap 5 MMOL/L (8-16) L 08/13/19 07:45 BUN 13.4 mg/dL (7-18) 08/13/19 07:45 Creatinine 0.6 mg/dL (0.55-1.3) 08/13/19 07:45 Est GFR (CKD-EPI)AfAm 145.76 08/13/19 07:45 Est GFR (CKD-EPI)NonAf 125.77 08/13/19 07:45 Random Glucose 84 mg/dL (74-106) 08/13/19 07:45 Calcium 8.8 mg/dL (8.5-10.1) 08/13/19 07:45 Total Bilirubin 0.6 mg/dL (0.2-1) 08/13/19 07:45 AST 19 U/L (15-37) 08/13/19 07:45 ALT 30 U/L (13-61) 08/13/19 07:45 Alkaline Phosphatase 73 U/L (45-117) 08/13/19 07:45 Total Protein 6.8 g/dl (6.4-8.2) 08/13/19 07:45 Albumin 3.3 g/dl (3.4-5.0) L 08/13/19 07:45 RPR Titer Nonreactive (NONREACTIVE) 08/13/19 07:45 lab noted Assessment: 08/16/19 09:54 opiate withdrawal Plan: methadone regimen
[2019-08-16] MEDS ORDERED: METHADONE HCL 10 MG TABLET (FOR DETOX USE ONLY) PO ONE (10:00)
[2019-08-16] MEDS: levETIRAcetam 500 MG TABLET (FP) PO SCH ×2 (10:17→21:34)
[2019-08-16] MEDS: ESCITALOPRAM OXALATE 20 MG TABLET (FP) PO SCH (10:17)
[2019-08-16] MEDS: LIDOCAINE 5% TOPICAL PATCH TP SCH (10:17)
[2019-08-16] MEDS: QUEtiapine FUMARATE 25 MG TABLET (FP) PO SCH (10:17)
[2019-08-16] MEDS: PRENATAL VITAMINS W/ FOLIC ACID TABLET (FP) PO SCH (10:17)
[2019-08-16] MEDS: NICOTINE 21 MG/24 HOURS TOPICAL PATCH TD SCH (10:17)
[2019-08-16] MEDS: hydrOXYzine PAMOATE 50 MG CAPSULE (FP) PO PRN ×2 (13:28→19:05)
[2019-08-16] MEDS: METHOCARBAMOL 500 MG TABLET PO PRN (16:37)
[2019-08-16] MEDS: LIDOCAINE PATCH REMOVAL MC SCH (21:34)
[2019-08-16] MEDS: THIAMINE HCL 100 MG TABLET (FP) PO SCH (21:35)
[2019-08-16] MEDS: QUEtiapine FUMARATE 400 MG TABLET PO SCH (21:35)
[2019-08-16] MEDS: MELATONIN 5 MG TABLETS PO PRN (21:39)
[2019-08-17] MEDS: GABAPENTIN 400 MG CAPSULE (FP) PO SCH (05:48)
[2019-08-17] MEDS ORDERED: METHADONE HCL 5 MG TABLET (FOR DETOX USE ONLY) PO ONE (06:00)
[2019-08-17 09:04] VITALS: BP 107/71; PULSE 88; TEMP 97.5
--- NOTE | 2019-08-17 10:11 | DS ---
[facility] Detox Discharge Summary Admission Date: 08/12/19 Discharge Date: 08/17/19 - History Present History: Opioid Dependence Additional Comments: 39 years old male admitted on 08/12/19 for opiate withdrawal sx management treated with methadone detox regimen patient has completed the methadone detox regimen and tolerated methadone well cardiac s1s2 regular rate rhythm extremities full range of motion skin warm and dry Pertinent Past History: strong recommend the patient to explore medication assisted treatment program picking up narcan from pharmacy patient agrees to return to his primary care neurologist for follow up - Physical Exam Results Vital Signs: Vital Signs Temperature 97.5 F L 08/17/19 09:03 Pulse Rate 88 08/17/19 09:03 Respiratory Rate 18 08/17/19 09:03 Blood Pressure 107/71 08/17/19 09:03 O2 Sat by Pulse Oximetry (%) Pertinent Admission Physical Exam Findings: opiate withdrawal Laboratory Last Values WBC 7.7 K/mm3 (4.0-10.0) 08/13/19 07:45 RBC 4.88 M/mm3 (4.00-5.60) 08/13/19 07:45 Hgb 14.3 GM/dL (11.7-16.9) 08/13/19 07:45 Hct 43.2 % (35.4-49) 08/13/19 07:45 MCV 88.5 fl (80-96) 08/13/19 07:45 MCH 29.3 pg (25.7-33.7) 08/13/19 07:45 MCHC 33.1 g/dl (32.0-35.9) 08/13/19 07:45 RDW 13.1 % (11.9-15.9) 08/13/19 07:45 Plt Count 232 K/MM3 (134-434) D 08/13/19 07:45 MPV 8.6 fl (7.5-11.1) 08/13/19 07:45 Sodium 139 mmol/L (136-145) 08/13/19 07:45 Potassium 4.2 mmol/L (3.5-5.1) 08/13/19 07:45 Chloride 104 mmol/L (98-107) 08/13/19 07:45 Carbon Dioxide 30 mmol/L (21-32) 08/13/19 07:45 Anion Gap 5 MMOL/L (8-16) L 08/13/19 07:45 BUN 13.4 mg/dL (7-18) 08/13/19 07:45 Creatinine 0.6 mg/dL (0.55-1.3) 08/13/19 07:45 Est GFR (CKD-EPI)AfAm 145.76 08/13/19 07:45 Est GFR (CKD-EPI)NonAf 125.77 08/13/19 07:45 Random Glucose 84 mg/dL (74-106) 08/13/19 07:45 Calcium 8.8 mg/dL (8.5-10.1) 08/13/19 07:45 Total Bilirubin 0.6 mg/dL (0.2-1) 08/13/19 07:45 AST 19 U/L (15-37) 08/13/19 07:45 ALT 30 U/L (13-61) 08/13/19 07:45 Alkaline Phosphatase 73 U/L (45-117) 08/13/19 07:45 Total Protein 6.8 g/dl (6.4-8.2) 08/13/19 07:45 Albumin 3.3 g/dl (3.4-5.0) L 08/13/19 07:45 RPR Titer Nonreactive (NONREACTIVE) 08/13/19 07:45 lab noted - Treatment Hospital Course: Detox Protocol Followed, Detoxed Safely, Responded well, Discharged Condition Good, Rehab Referral Accepted Patient has Accepted a Rehab Referral to: methadone maintenance program - Medication Discharge Medications: Ambulatory Orders Cyclobenzaprine HCl [Flexeril 10 mg] 10 mg PO BID 03/09/19 Gabapentin 800 mg PO TID 03/09/19 Naproxen [Naprosyn] 500 mg PO BID 03/09/19 Quetiapine Fumarate [Seroquel -] 400 mg PO HS 03/09/19 hydrOXYzine PAMOATE [Vistaril -] 100 mg PO HS 03/09/19 Escitalopram Oxalate [Lexapro -] 20 mg PO DAILY 08/12/19 Quetiapine Fumarate [Seroquel -] 25 mg PO HS 08/12/19 cloNIDine HCL [Catapres -] 0.2 mg PO Q12H PRN 08/12/19 Naloxone HCl [Narcan -] 0.4 mg IH ASDIR PRN #1 vial 08/15/19 levETIRAcetam [Keppra -] 500 mg PO BID tablet 08/17/19 levETIRAcetam [Keppra -] 500 mg PO BID #60 tablet 08/17/19 - Diagnosis (1) Seizure Status: Chronic (2) Opioid dependence, uncomplicated Status: Acute (3) Substance induced mood disorder Status: Suspected (4) Hypertension Status: Chronic Qualifiers: Hypertension type: essential hypertension Qualified Code(s): I10 - Essential (primary) hypertension (5) Nicotine use disorder Status: Acute - AMA Did Patient Leave Against Medical Advice: No COWS (PN) - Opiate Withdrawal Resting Pulse: 1= [place] 81-100 Sweatin= No chills or Flushing Restless Observation: 0= Sits Still Pupil Size: 0= Normal to Room Light Bone or Joint Aches: 0= None Runny Nose/ Eye Tearin= None GI Upset > 30mins: 0= None Tremor Observation of Outstretched Hands: 0= None Yawning Observation: 0= None Anxiety or Irritability: 1=Feels Anxious/Irritable Goose Flesh Skin: 0=Smooth Skin COWS Score: 2
== END 2019-08-17 09:59 | disposition home or self-care (01) | DRG 773 ==
LOC: YASAS 11:24 → Y3N 19:11
PROVIDERS: ADMIT Allergy & Immunology; ATTEND Allergy & Immunology
PROC: HZ2ZZZZ Detoxification Services for Substance Abuse Treatment (ICD-10-PCS; principal; 2019-08-12)
DX: F11.23 Opioid dependence with withdrawal (principal); F13.20 Sedative, hypnotic or anxiolytic dependence, uncomplicated; F17.210 Nicotine dependence, cigarettes, uncomplicated; F19.24 Other psychoactive substance dependence with psychoactive substance-induced mood disorder; F19.280 Other psychoactive substance dependence with psychoactive substance-induced anxiety disorder; F19.282 Other psychoactive substance dependence with psychoactive substance-induced sleep disorder; F41.9 Anxiety disorder, unspecified; I10 Essential (primary) hypertension; G40.909 Epilepsy, unspecified, not intractable, without status epilepticus; M54.5 Low back pain; G89.29 Other chronic pain; R76.11 Nonspecific reaction to tuberculin skin test without active tuberculosis; Z91.013 Allergy to seafood
CPT/HCPCS: 36415; 80053; 85027; 86593; 93005; 93010; J0735

== ENCOUNTER 2021-12-12 14:19 | Inpatient (IN) | payer OTHER ==
[2021-12-12] MEDS ORDERED: MAGNESIUM CITRATE 300 ML BOTTLE PO PRN (16:10)
[2021-12-12] MEDS ORDERED: DICYCLOMINE HCL 10 MG CAPSULE PO PRN (16:10)
[2021-12-12] MEDS ORDERED: LOPERAMIDE HCL 2 MG CAPSULE PO PRN (16:10)
[2021-12-12] MEDS ORDERED: NICOTINE 10 MG CARTRIDGE (INHALER) IH PRN (16:10)
[2021-12-12] MEDS ORDERED: ACETAMINOPHEN 325 MG TABLET (FP) PO PRN ×2 (16:10)
[2021-12-12] MEDS ORDERED: cloNIDine HCL 0.1 MG TABLET PO PRN (16:10)
[2021-12-12] MEDS ORDERED: IBUPROFEN 400 MG TABLET (FP) PO PRN (16:10)
[2021-12-12] MEDS ORDERED: MAG HYDROX/AL HYDROX/SIMETH 30 ML UNIT-DOSE CUP PO PRN (16:10)
[2021-12-12] MEDS ORDERED: BISMUTH SUBSALICYLATE 524 MG/30 ML PO PRN (16:10)
[2021-12-12] MEDS ORDERED: MAGNESIUM HYDROX 2400MG/30ML ORAL SUSPENSION 30 ML CUP PO PRN (16:10)
[2021-12-12] MEDS ORDERED: ONDANSETRON *ODT* 4 MG TABLET SL PRN (16:10)
[2021-12-12] MEDS ORDERED: BENZOCAINE/MENTHOL (CHLORASEPTIC ) LOZENGE MM PRN (16:10)
[2021-12-12] MEDS ORDERED: hydrOXYzine PAMOATE 25 MG CAPSULE (FP) PO SCH (18:00)
[2021-12-12 18:15] VITALS: BMI 27.6
[2021-12-12] MEDS ORDERED: SUMAtriptan SUCCINATE 25 MG TABLET PO PRN (18:15)
[2021-12-12] MEDS ORDERED: hydrOXYzine PAMOATE 25 MG CAPSULE (FP) PO PRN (18:47)
[2021-12-12] MEDS: hydrOXYzine PAMOATE 25 MG CAPSULE (FP) PO PRN ×2 (18:55→19:38)
[2021-12-12] MEDS: NICOTINE 21 MG/24 HOURS TOPICAL PATCH TD SCH (18:56)
[2021-12-12] MEDS: PRENATAL VITAMINS W/ FOLIC ACID TABLET (FP) PO SCH (18:57)
[2021-12-12] MEDS ORDERED: QUEtiapine FUMARATE 200 MG TABLET PO SCH (22:00)
[2021-12-12] MEDS ORDERED: levETIRAcetam 500 MG TABLET (FP) PO SCH (22:00)
[2021-12-12] MEDS ORDERED: CYCLOBENZAPRINE HCL 10 MG TABLET (FP) PO SCH (22:00)
[2021-12-12] MEDS: levETIRAcetam 500 MG TABLET (FP) PO SCH (22:56)
[2021-12-12] MEDS: GABAPENTIN 400 MG CAPSULE PO SCH (22:56)
[2021-12-12] MEDS: THIAMINE HCL 100 MG TABLET (FP) PO SCH (22:57)
[2021-12-12] MEDS: MELATONIN 5 MG TABLETS PO SCH (22:57)
[2021-12-12] MEDS: QUEtiapine FUMARATE 200 MG TABLET PO SCH (23:02)
[2021-12-12] MEDS: hydrOXYzine PAMOATE 50 MG CAPSULE (FP) PO SCH (23:02)
[2021-12-12] MEDS ORDERED: methaDONE HCL 10 MG TABLET (FOR DETOX USE ONLY) PO ONE (23:10)
[2021-12-13] MEDS: GABAPENTIN 400 MG CAPSULE PO SCH ×3 (05:17→22:35)
[2021-12-13] MEDS ORDERED: methaDONE HCL 10 MG TABLET (FOR DETOX USE ONLY) ONE (08:16)
[2021-12-13] MEDS: PRENATAL VITAMINS W/ FOLIC ACID TABLET (FP) PO SCH (10:38)
[2021-12-13] MEDS: levETIRAcetam 500 MG TABLET (FP) PO SCH ×2 (10:38→22:35)
[2021-12-13] MEDS: ESCITALOPRAM OXALATE 20 MG TABLET PO SCH (10:39)
[2021-12-13] MEDS: NICOTINE 21 MG/24 HOURS TOPICAL PATCH TD SCH (10:41)
[2021-12-13 13:49] LABS: HEMATOCRIT 40.3 % (35.4-49); HEMOGLOBIN 13.4 GM/dL (11.7-16.9); MCH 29.6 pg (25.7-33.7); MCHC 33.4 g/dl (32.0-35.9); MEAN CELL VOLUME 88.6 fl (80-96); MEAN PLT VOLUME 8.2 fl (7.5-11.1); PLATELET COUNT 183 10^3/uL (134-434); RBC 4.54 M/mm3 (4.00-5.60); RDW 13.4 % (11.9-15.9); WHITE BLOOD COUNT 6.1 K/mm3 (4.0-10.0)
[2021-12-13 14:33] LABS: ALBUMIN 3.4 g/dl (3.4-5.0)
[2021-12-13 14:34] LABS: BLOOD UREA NITROGEN 15.8 mg/dL (7-18)
[2021-12-13 14:36] LABS: CREATININE 0.8 mg/dL (0.55-1.3)
[2021-12-13 14:38] LABS: TOT PROT 6.9 g/dl (6.4-8.2)
[2021-12-13 14:54] LABS: BILIRUBIN,TOTAL 0.4 mg/dL (0.2-1)
[2021-12-13] MEDS: diazePAM 5 MG TABLET PO PRN ×2 (18:20→22:34)
[2021-12-13] MEDS: QUEtiapine FUMARATE 200 MG TABLET PO SCH (22:34)
[2021-12-13] MEDS: hydrOXYzine PAMOATE 50 MG CAPSULE (FP) PO SCH (22:34)
[2021-12-13] MEDS: THIAMINE HCL 100 MG TABLET (FP) PO SCH (22:35)
[2021-12-13] MEDS: MELATONIN 5 MG TABLETS PO SCH (22:35)
[2021-12-14] MEDS: GABAPENTIN 400 MG CAPSULE PO SCH ×3 (07:24→22:33)
[2021-12-14] MEDS ORDERED: methaDONE HCL 10 MG TABLET (FOR DETOX USE ONLY) PO ONE (10:00)
[2021-12-14] MEDS: ESCITALOPRAM OXALATE 20 MG TABLET PO SCH (10:36)
[2021-12-14] MEDS: METHOCARBAMOL 500 MG TABLET PO PRN (10:36)
[2021-12-14] MEDS: levETIRAcetam 500 MG TABLET (FP) PO SCH ×2 (10:36→22:33)
[2021-12-14] MEDS: diazePAM 5 MG TABLET PO PRN (10:38)
[2021-12-14] MEDS: PRENATAL VITAMINS W/ FOLIC ACID TABLET (FP) PO SCH (11:03)
[2021-12-14] MEDS: NICOTINE 21 MG/24 HOURS TOPICAL PATCH TD SCH (11:03)
[2021-12-14 17:09] LABS: SARS-CoV-2 NAA Not Detected (Not Detected)
[2021-12-14] MEDS: QUEtiapine FUMARATE 200 MG TABLET PO SCH (22:32)
[2021-12-14] MEDS: MELATONIN 5 MG TABLETS PO SCH (22:34)
[2021-12-14] MEDS: hydrOXYzine PAMOATE 50 MG CAPSULE (FP) PO SCH (22:35)
[2021-12-14] MEDS: THIAMINE HCL 100 MG TABLET (FP) PO SCH (22:36)
[2021-12-15] MEDS: GABAPENTIN 400 MG CAPSULE PO SCH ×3 (06:26→22:11)
[2021-12-15] MEDS: diazePAM 5 MG TABLET PO PRN ×3 (08:25→18:22)
[2021-12-15] MEDS ORDERED: methaDONE HCL 10 MG TABLET (FOR DETOX USE ONLY) ONE (08:29)
[2021-12-15] MEDS: PRENATAL VITAMINS W/ FOLIC ACID TABLET (FP) PO SCH (10:35)
[2021-12-15] MEDS: levETIRAcetam 500 MG TABLET (FP) PO SCH ×2 (10:36→22:11)
[2021-12-15] MEDS: ESCITALOPRAM OXALATE 20 MG TABLET PO SCH (10:36)
[2021-12-15] MEDS: NICOTINE 21 MG/24 HOURS TOPICAL PATCH TD SCH (10:36)
[2021-12-15] MEDS: METHOCARBAMOL 500 MG TABLET PO PRN (10:38)
[2021-12-15] MEDS: THIAMINE HCL 100 MG TABLET (FP) PO SCH (22:11)
[2021-12-15] MEDS: hydrOXYzine PAMOATE 50 MG CAPSULE (FP) PO SCH (22:11)
[2021-12-15] MEDS: MELATONIN 5 MG TABLETS PO SCH (22:11)
[2021-12-15] MEDS: QUEtiapine FUMARATE 200 MG TABLET PO SCH (22:11)
[2021-12-16] MEDS: GABAPENTIN 400 MG CAPSULE PO SCH ×3 (06:04→22:22)
[2021-12-16] MEDS: diazePAM 5 MG TABLET PO PRN ×2 (08:47→12:57)
[2021-12-16] MEDS ORDERED: methaDONE HCL 10 MG TABLET (FOR DETOX USE ONLY) PO ONE (10:00)
[2021-12-16] MEDS: PRENATAL VITAMINS W/ FOLIC ACID TABLET (FP) PO SCH (10:39)
[2021-12-16] MEDS: NICOTINE 21 MG/24 HOURS TOPICAL PATCH TD SCH (10:40)
[2021-12-16] MEDS: ESCITALOPRAM OXALATE 20 MG TABLET PO SCH (10:40)
[2021-12-16] MEDS: levETIRAcetam 500 MG TABLET (FP) PO SCH ×2 (10:40→22:22)
[2021-12-16] MEDS: QUEtiapine FUMARATE 200 MG TABLET PO SCH (22:22)
[2021-12-16] MEDS: hydrOXYzine PAMOATE 50 MG CAPSULE (FP) PO SCH (22:22)
[2021-12-16] MEDS: THIAMINE HCL 100 MG TABLET (FP) PO SCH (22:23)
[2021-12-16] MEDS: MELATONIN 5 MG TABLETS PO SCH (22:23)
[2021-12-17] MEDS: GABAPENTIN 400 MG CAPSULE PO SCH (05:34)
[2021-12-17 06:23] VITALS: BP 111/79; PULSE 76; TEMP 97.2
[2021-12-17] MEDS: ESCITALOPRAM OXALATE 20 MG TABLET PO SCH (10:36)
[2021-12-17] MEDS: levETIRAcetam 500 MG TABLET (FP) PO SCH (10:36)
[2021-12-17] MEDS: PRENATAL VITAMINS W/ FOLIC ACID TABLET (FP) PO SCH (10:36)
[2021-12-17] MEDS: NICOTINE 21 MG/24 HOURS TOPICAL PATCH TD SCH (10:37)
== END 2021-12-17 11:02 | disposition home or self-care (01) | DRG 773 ==
LOC: YASAS 14:19 → Y3N 18:20
PROVIDERS: ADMIT Allergy & Immunology; ATTEND Surgery
PROC: HZ2ZZZZ Detoxification Services for Substance Abuse Treatment (ICD-10-PCS; principal; 2021-12-12)
DX: F11.23 Opioid dependence with withdrawal (principal); F13.230 Sedative, hypnotic or anxiolytic dependence with withdrawal, uncomplicated; F17.210 Nicotine dependence, cigarettes, uncomplicated; F19.280 Other psychoactive substance dependence with psychoactive substance-induced anxiety disorder; F31.9 Bipolar disorder, unspecified; F39 Unspecified mood [affective] disorder; I10 Essential (primary) hypertension; R56.9 Unspecified convulsions; M54.50 Low back pain, unspecified; G89.29 Other chronic pain; R76.11 Nonspecific reaction to tuberculin skin test without active tuberculosis; Z28.310 Unvaccinated for COVID-19
CPT/HCPCS: 36415; 80053; 80177; 82947; 85027; 86780; C9803-CS; J0735; U0003; U0005